=== PATIENT | female | born 1995 | race African-American/Black ===

== ENCOUNTER 2024-06-03 17:34 | Emergency (ER) | payer OTHER ==
[~2024-06-03] VITALS: Ht 152.4 cm; Wt 88.0 kg
[2024-06-03 17:50] VITALS: PULSE 101; RESP 18; TEMP 98
[2024-06-03] MEDS ORDERED: LOTRIMIN AF12 GM TOP (19:00)
[2024-06-03] MEDS ORDERED: VALTREX1000 MG PO (19:02)
[2024-06-03] MEDS ORDERED: CEPHALEXIN500 MG PO (19:03)
[2024-06-03 20:14] VITALS: BP 128/84; PULSE 98; RESP 18; TEMP 98.3; O2SAT 99
== END 2024-06-03 19:40 | disposition home or self-care (01) ==
LOC: FSED 17:39
DX: B37.31 Acute candidiasis of vulva and vagina (principal); A60.00 Herpesviral infection of urogenital system, unspecified; N89.8 Other specified noninflammatory disorders of vagina; F79 Unspecified intellectual disabilities; F31.9 Bipolar disorder, unspecified; L40.9 Psoriasis, unspecified; E66.9 Obesity, unspecified; Z68.39 Body mass index [BMI] 39.0-39.9, adult
CPT/HCPCS: 99284